=== PATIENT | male | born 1995 | race Caucasian/White ===

== ENCOUNTER 2020-01-21 16:45 | Emergency (ER) | payer OTHER | END 2020-01-21 17:10 | disposition other institution (70) | LOC: ED 16:45 | DX: Z02.89 Encounter for other administrative examinations (principal) ==

== ENCOUNTER 2020-01-21 16:45 | Emergency (ER) | payer MEDICAID ==
[~2020-01-21] VITALS: Ht 182.9 cm; Wt 72.6 kg
[2020-01-21 16:46] VITALS: Ht 182.9 cm; Wt 72.6 kg
[2020-01-21 17:10] VITALS: BP 152/981
== END 2020-01-21 17:10 | disposition other institution (70) ==
LOC: ED 16:45
DX: S80.212A Abrasion, left knee, initial encounter (principal); Z13.9 Encounter for screening, unspecified; W18.30XA Fall on same level, unspecified, initial encounter; Y93.89 Activity, other specified; Y92.89 Other specified places as the place of occurrence of the external cause; Y99.8 Other external cause status